=== PATIENT | female | born 1965 ===

== ENCOUNTER 2020-12-19 12:51 | Inpatient (IN) | payer OTHER ==
[~2020-12-19] VITALS: Ht 162.6 cm; Wt 87.5 kg
[~2020-12-19 12:51] MED LIST: FOLIC A PO; SULFAZINE EC500 MG PO
[2020-12-20] MEDS ORDERED: KETO10TA2 PO (07:46)
== END 2020-12-20 11:03 | disposition home or self-care (01) | DRG 742 ==
LOC: CIR.AMB 12:51 → OB/GYN 16:52 → O/R 16:52 → OB/GYN 17:05
PROVIDERS: ADMIT Obstetrics & Gynecology; ATTEND Obstetrics & Gynecology
PROC: 0UB98ZZ Excision of Uterus, Via Natural or Artificial Opening Endoscopic (ICD-10-PCS; principal; 2020-12-19 12:30)
DX: N84.0 Polyp of corpus uteri (principal); N99.71 Accidental puncture and laceration of a genitourinary system organ or structure during a genitourinary system procedure